=== PATIENT | female | born 1985 | race Caucasian/White ===

== ENCOUNTER 2021-08-29 19:20 | Outpatient (CLI) | payer MEDICAID, SELFPAY ==
[2021-08-29 19:20] VITALS: BMI 43.8
[2021-08-29 19:41] VITALS: BP 116/72; PULSE 93
[2021-08-29 20:15] VITALS: BP 116/72; PULSE 93; RESP 16; TEMP 36.6
== END 2021-08-29 20:15 | disposition home or self-care (01) ==
LOC: OPOB 19:23 → OBGYN 19:24
PROVIDERS: Visit Provider Family Medicine
DX: O26.899 Other specified pregnancy related conditions, unspecified trimester (principal); Z3A.00 Weeks of gestation of pregnancy not specified; R10.9 Unspecified abdominal pain
CPT/HCPCS: 59025; 99211

== ENCOUNTER 2021-09-06 17:10 | Inpatient (IN) | payer MEDICAID, SELFPAY ==
[2021-09-06] VITALS (71 sets, daily range): BP systolic 93–161; BP diastolic 50–115; PULSE 64–89; RESP 16–17; TEMP 36.6; O2SAT 93–100; BMI 41.8
[2021-09-06] MEDS: dextrose 5%-lactated ringers 1,000 ML 125 ML IV (17:38)
[2021-09-06] MEDS: ampicillin 2,000 MG in sodium chloride 0.9% (plus) 50 ML 100 MG IV (17:39)
[2021-09-06] MEDS: oxytocin 30 UNIT/500 ML BAG IV (17:45)
[2021-09-06 18:20] LABS: Basophils % 0.5 %; Eosinophils # 0.1 10^3/uL (0.0-0.8); Eosinophils % 1.3 %; Hematocrit 37.8 % (37.0-47.0); Hemoglobin 12.6 g/dL (11.5-15.3); Lymphocytes % 25.8 %; Mean Corpuscular HGB Conc 33.3 g/dL (30.0-36.0); Mean Corpuscular Hemoglobin 29.9 pg (28.0-34.0); Mean Corpuscular Volume 89.6 fl (81-99); Mean Platelet Volume 11.8 fL (7.4-10.4); Monocytes # 0.7 10^3/uL (0.2-0.9); Monocytes % 9.2 %; Neutrophils # 4.81 10^3/uL (1.8-7.7); Neutrophils % 62.4 %; Nucleated Red Blood Cells % 0 %; Platelet Count 191 10^3/cmm (130-400); Red Blood Count 4.22 10^6/uL (4.1-5.3); White Blood Count 7.7 10^3/uL (4.0-10.0)
--- NOTE | 2021-09-06 19:33 | ANES.PROC ---
Anesthesia Procedures Procedure/Date: 09/06/21 Epidural: Time Out Performed: Yes Consents Signed: Procedure Consent Consent: requested by attending/covering physician, from patient, risks and benefits reviewed and patient agrees to proceed Lumbar Level: L3-L4 Epidural position: sitting Epidural procedure: sterile prep of area, 1% lidocaine to numb the area, 18 g needle, neg for paresthesia, test dose given, 1.5% xylocaine 1:200k epi (5cc), 0.2% Ropivacaine bolus ml (5cc), placed PCEA, no systemic response, sterile dressing applied, L.U.D. no apparent complications and 0.2% Ropiavacaine @ mls/hr (13cc/hour. SANJANA at 9cm. Pt tolerated well)
--- NOTE | 2021-09-06 19:38 | ANES.PREANE2 ---
Pre-Anesthetic Assessment Height/Weight: Height 1.75 m Weight 128.367 kg Temp Pulse Resp BP Pulse Ox 97.9 F 85 17 161/115 99 09/06/21 18:31 09/06/21 19:30 09/06/21 18:31 09/06/21 19:30 09/06/21 19:30 Preop Diagnosis: Labor pain PB Was Beta Giselle taken within 24 hours: N/A Was Clonidine taken within 24 hours: N/A Social Tobacco Exam alert, oriented x 3, clear to auscultation bilaterally and regular rate & rhythm Airway Submandibular: within normal limits Cervical ROM: within normal limits Mallampati: Class II Dentition: full History/ROS No significant history except as noted and No significant complaints Pulmonary None reported CV/HEM None reported None reported Hepatic None reported GI Gastroesophageal Reflux Disease TUMS Metabolic Morbid Obesity and None reported Musc/skel None reported Neuropsych None reported Anesthetic Plan ASA status: 2 Anesthesia: Anesthesia Evaluation and Regional (specify below) Risk of > 500 ml blood loss (7ml/kg in children): No Medications/Allergies Home Medications Medication Instructions Recorded Confirmed Last Taken Type 1 tab PO DAILY 08/29/21 08/29/21 08/29/21 History Allergies Allergy/AdvReac Type Severity Reaction Status Date / Time cat dander Allergy ALGY-Watery Verified 08/29/21 20:10 Eye Current Medications Generic Name Dose Route Start Last Admin Trade Name Freq PRN Reason Stop Dose Admin Dextrose/Lactated Ringer's 1,000 mls @ 125 mls/hr 09/06/21 17:15 09/06/21 17:38 Dextrose 5%-Lactated Ringers IV 125 mls/hr .Q8H CELESTINO Administration Oxytocin 30 unit in 500 mls @ 1 mls/hr 09/06/21 17:30 09/06/21 19:00 Pitocin IV 11 milliunit/min .Q24H CELESTINO 11 mls/hr Titration Protocol 1 MILLIUNIT/MIN PFSH Anesthesia Female Reproductive History : 7 Data Anesthesia : 09/06/21 17:45 Short CBC 09/06/21 Range/Units 17:45 WBC 7.7 (4.0-10.0) 10^3/uL Hgb 12.6 (11.5-15.3) g/dL Hct 37.8 (37.0-47.0) % MCV 89.6 (81-99) fl Plt Count 191 (130-400) 10^3/cmm Neut % (Auto) 62.4 % Neut # (Auto) 4.81 (1.8-7.7) 10^3/uL Cardiac Studies: No Data to Display
[2021-09-06] MEDS: ampicillin 1,000 MG in sodium chloride 0.9% (plus) 50 ML 100 MG IV (21:29)
--- NOTE | 2021-09-06 23:08 | PC.NURSE ---
JAMAAL Sanchez notified that patient is c/o continued discomfort and pump is now alerting HIGH PRESSURE. JAMAAL Sanchez on his way to assess.
[2021-09-06] MEDS: lactated ringers 1,000 ML 999 ML IV (23:48)
[2021-09-07] VITALS (20 sets, daily range): BP systolic 98–137; BP diastolic 54–82; PULSE 68–126; RESP 18; TEMP 36.6–36.8; O2SAT 97
[2021-09-07] MEDS: ampicillin 1,000 MG in sodium chloride 0.9% (plus) 50 ML 100 MG IV (03:05)
--- NOTE | 2021-09-07 07:06 | PC.NURSE ---
Limited care and does not have custody of other children.
[2021-09-07] MEDS: benzocaine-menthol 78 gm Canister 1 SPRAY TOPICAL (08:31)
[2021-09-07] MEDS: ibuprofen 800 mg tablet PO ×3 (08:31→20:26)
[2021-09-07] MEDS: docusate sodium 100 mg Capsule PO (08:32)
--- NOTE | 2021-09-07 09:21 | PC.NURSE ---
Patient ambulated to PP room at this time, No complaints of dizziness or feelings of lightheadedness.
--- NOTE | 2021-09-07 12:00 | PM.DELIVERY ---
Delivery Note: Date of delivery: September 07, 2021 Procedure: Normal spontaneous vaginal delivery Estimated blood loss (mL): 200 Pre-Delivery Course: The patient had no care until 36 weeks gestation. She is blood type A+ antibody negative, GC chlamydia negative, rubella not immune, hepatitis B surface antigen nonreactive, hepatitis C antibody nonreactive, RPR nonreactive, UDS negative, she was positive for group B strep. She did not have a glucose tolerance test due to late presentation. Delivery: This is a 36-year-old -0-2-4 who was admitted for induction secondary to postdates. She was 40 weeks 5 days gestation. Her ALEX was 4-2-22 by an 8-week ultrasound consistent with a 39-week ultrasound. The patient cervix was favorable for induction so she was started on high-dose Pitocin. She was GBS positive and started on ampicillin protocol. She had 3 doses of ampicillin prior to delivery. She received an epidural for pain management. When she was 8 cm dilated she underwent artificial rupture of membranes with clear fluid. Less than 30 minutes later she had a normal spontaneous vaginal delivery of a viable female infant weight 4110 g, and 9 pounds 1 ounces, Apgars 8 and 9 over an intact perineum. The infant was suctioned at delivery and placed on the mother's chest. The cord was clamped and cut. The placenta was delivered grossly intact and normal to inspection. There was a first-degree perineal and right labial laceration that did not require suturing. Mother and were doing well after delivery. Coding Level of Care Code Acute Automobile Brakes [employer]onder for Kareem Bhat
[2021-09-07 17:31] LABS: Hemoglobin 11.8 g/dL (11.5-15.3); Mean Corpuscular HGB Conc 32.8 g/dL (30.0-36.0); Mean Corpuscular Hemoglobin 29.9 pg (28.0-34.0); Mean Corpuscular Volume 91.1 fl (81-99); Mean Platelet Volume 11.5 fL (7.4-10.4); Platelet Count 199 10^3/cmm (130-400); Red Blood Count 3.95 10^6/uL (4.1-5.3); Red Cell Distribution Width 14.1 % (12.1-15.1); White Blood Count 10.6 10^3/uL (4.0-10.0)
--- NOTE | 2021-09-07 18:15 | PC.NURSE ---
Dr Dupont was called to advise that patient had requested to go outside but was not allowed due to hospital policy. Received order for nicotine patch but patient declined and stated she just wanted to go outside for a break but it's no problem.
[2021-09-08 04:00] VITALS: BP 99/59; PULSE 71; RESP 18; TEMP 36.6
[2021-09-08] MEDS: ibuprofen 800 mg tablet PO ×2 (11:26→15:36)
[2021-09-08] MEDS: docusate sodium 100 mg Capsule PO (11:26)
[2021-09-08] MEDS: prenatal vitamin Capsule 1 CAP PO (11:26)
[2021-09-08 11:30] VITALS: BP 100/62; PULSE 64; RESP 16; TEMP 36.5
--- NOTE | 2021-09-08 16:26 | PM.DCS ---
Discharge Providers Date of Admission: 09/06/21 17:10 Date of Discharge: September 08, 2021 Attending Provider at Admission: Fe Dupont MD Attending Provider at Discharge: Fe Dupont MD Reason for Visit Reason for Visit: induction Hospital Course Hospital Course This is a 36-year-old G7 now P5 who presented for a postdate induction. She had a normal spontaneous vaginal delivery of a viable female . Mother and infant did well after delivery. Mother had average vaginal bleeding, she was ambulating, tolerating a regular diet and was requesting discharge home. Physical Exam Narrative: Alert and oriented, sitting up in bedside chair breast-feeding . Heart regular rate and rhythm lungs clear to auscultation bilaterally, abdomen is soft and nontender, extremities have nonpitting edema but no calf tenderness. Urinary Catheter Management: Lechuga Latex: Cath Placed During This Visit: yes, but has since been removed by the nurse Reason for Continuing Indwelling Catheter: Other Urinary Catheter Date of Insertion: 09/06/21 Urinary Catheter Time of Insertion: 20:08 Date Urinary Catheter Removed: 09/07/21 Time Urinary Catheter Discontinued: 04:41 Discharge Data Studies Completed and Pending Laboratory Results WBC 10.6 10^3/uL (4.0-10.0) H 09/07/21 17:10 RBC 3.95 10^6/uL (4.1-5.3) L 09/07/21 17:10 Hgb 11.8 g/dL (11.5-15.3) 09/07/21 17:10 Hct 36.0 % (37.0-47.0) L 09/07/21 17:10 MCV 91.1 fl (81-99) 09/07/21 17:10 MCH 29.9 pg (28.0-34.0) 09/07/21 17:10 MCHC 32.8 g/dL (30.0-36.0) 09/07/21 17:10 RDW 14.1 % (12.1-15.1) 09/07/21 17:10 Plt Count 199 10^3/cmm (130-400) 09/07/21 17:10 MPV 11.5 fL (7.4-10.4) H 09/07/21 17:10 Neut % (Auto) 62.4 % 09/06/21 17:45 Lymph % (Auto) 25.8 % 09/06/21 17:45 [place] % (Auto) 9.2 % 09/06/21 17:45 Eos % (Auto) 1.3 % 09/06/21 17:45 Baso % (Auto) 0.5 % 09/06/21 17:45 Neut # (Auto) 4.81 10^3/uL (1.8-7.7) 09/06/21 17:45 Lymph # (Auto) 2.0 10^3/uL (0.8-4.8) 09/06/21 17:45 [place] # (Auto) 0.7 10^3/uL (0.2-0.9) 09/06/21 17:45 Eos # (Auto) 0.1 10^3/uL (0.0-0.8) 09/06/21 17:45 Baso # (Auto) 0.0 10^3/uL (0.0-0.1) 09/06/21 17:45 Nucleated RBC % (auto) 0 % 09/06/21 17:45 Nucleated RBCs # 0.0 /100WBC 09/06/21 17:45 Vitals Last Vital Signs Temp 97.7 F 09/08/21 11:30 Pulse 64 09/08/21 11:30 Resp 16 09/08/21 11:30 BP 100/62 09/08/21 11:30 Pulse Ox 97 09/07/21 14:52 Discharge Plan Discharge Patient Disposition: Home Condition: Stable Prescriptions: Continued 1 tab PO DAILY 0RF Discharge Orders: Discharge Order (Routine); Ordered 09/08/21 Ordered By: Fe Dupont Referrals: Fe Dupont MD [Physician] - 1 month (Please call Brad Lockhart tomorrow after 1pm to schedule appointment in 4 weeks. ) Discharge Diet: Usual diet Discharge Activity: Limit activity as instructed Patient Instructions: Depression (DC), Expression, Collection and Storage of Breast Milk (DC), Bleeding (DC), Preeclampsia and Eclampsia After Delivery (GEN), OB Discharge Report, Opioid Safety, OB Proud Parent Packet, OB Vaginal Deliveries Discharge Attestations Time Spent in Discharge Care*: less than 30 min Quality Metrics Clinical Quality Measures [ No reported AMI, CVA or VTE this stay] Coding Level of Care Code Acute Chg FW DC note
[2021-09-08 17:37] VITALS: BP 106/64; PULSE 67; RESP 18; TEMP 36.5
== END 2021-09-08 17:15 | disposition home or self-care (01) | DRG 806 ==
LOC: OPOB 17:11 → OBGYN 17:11
PROVIDERS: Admitting Provider Family Medicine; Visit Provider Family Medicine
DX: O48.0 Post-term pregnancy (principal); O99.324 Drug use complicating childbirth; Z37.0 Single live birth; Z3A.40 40 weeks gestation of pregnancy; O99.824 Streptococcus B carrier state complicating childbirth; O99.334 Smoking (tobacco) complicating childbirth; F17.210 Nicotine dependence, cigarettes, uncomplicated; F12.90 Cannabis use, unspecified, uncomplicated
CPT/HCPCS: 36415; 51702; 59409; 85025; 85027; 99211; J0290; J2795; J3010